=== PATIENT | female | born 1985 | race African-American/Black ===

== ENCOUNTER 2021-10-31 18:31 | Emergency (ER) | payer OTHER ==
[~2021-10-31] VITALS: Ht 162.6 cm; Wt 97.7 kg
[2021-10-31 18:48] VITALS: BP 147/95
[2021-10-31 19:01] VITALS: BP 158/109
[2021-10-31 19:06] LABS: URINE BILIRUBIN - DIPSTICK NEGATIVE (NEGATIVE); URINE BLOOD DIPSTICK NEGATIVE (NEGATIVE); URINE COLOR YELLOW; URINE GLUCOSE - DIPSTICK NEGATIVE (NEGATIVE); URINE KETONE NEGATIVE (NEGATIVE); URINE LEUK ESTERASE TRACE (NEGATIVE); URINE PROTEIN - DIPSTICK NEGATIVE (NEG-TRACE); URINE UROBILINOGEN - DIPSTICK 0.2 E.U./dL (0.2)
[2021-10-31 19:06] LABS: HEMOGLOBIN 13.6 g/dl (12.0-16.0); IMMATURE GRANULOCYTES 0.3 % (0.0-5.0); MEAN CELL VOLUME 93.5 fL CALC (80.0-100.0); MEAN CORPUSCULAR HGB 29.6 pG CALC (26.0-32.0); MEAN CORPUSCULAR HGB CONC 31.6 g/dL CAL (32.0-36.0); NEUT# 5.76 thou/uL (2.00-7.15); RED BLOOD COUNT 4.6 mill/uL (4.20-5.60); RED CELL DISTRI WIDTH 11.8 % (11.5-15.5)
[2021-10-31 19:07] LABS: URINE NITRITE - DIPSTICK NEGATIVE (Negative)
[2021-10-31] MEDS ORDERED: NEURONTIN100 MG PO (19:12)
[2021-10-31] MEDS ORDERED: METHOCARBAMOL500 MG PO (19:12)
[2021-10-31] MEDS ORDERED: FLEXERIL5 M1 PO (19:13)
[2021-10-31 19:22] LABS: ALBUMIN 4.4 g/dL (3.2-5.0); ALKALINE PHOSPHATASE 81 u/l (38-126); ANION GAP 11 (6-22 (CALC)); BILIRUBIN, TOTAL 0.8 mg/dL (0.0-1.4); BUN 14 mg/dL (7-17); BUN/CREATININE RATIO 18 (12-20 (CALC)); CARBON DIOXIDE 27 mmol/l (22-30); CHLORIDE 99 mmol/l (95-108); CREATININE 0.8 mg/dL (0.5-1.0); GFR FOR AFR.AMER. > 60 ML/MIN (>=60 (CALC)); GFR OTHER RACES > 60 ML/MIN (>=60 (CALC)); LIPASE 80 u/l (23-300); POTASSIUM 3.7 mmol/l (3.5-5.1); SGOT/AST 31 u/l (14-36); SODIUM 134 mmol/l (137-146); TOTAL PROTEIN 8.3 g/dL (6.3-8.2)
[2021-10-31 20:07] VITALS: BP 116/53
[2021-10-31] MEDS ORDERED: LORTAB5 PO (20:07)
[2021-10-31] MEDS ORDERED: NAPROXEN500 MG PO (20:09)
[2021-10-31 20:30] VITALS: BP 137/96
[2021-11-01] MEDS ORDERED: HYDROCO/APAP1 TA9 PO (13:11)
[2021-11-01] MEDS ORDERED: ONDANSETRON4 MG PO (13:15)
== END 2021-10-31 20:34 | disposition home or self-care (01) | DRG 392 ==
LOC: ED 18:31
PROVIDERS: Nurse Practitioner
DX: R10.12 Left upper quadrant pain (principal)